=== PATIENT | female | born 1995 | race Caucasian/White ===

== ENCOUNTER 2016-08-25 | Outpatient (CLI) | payer OTHER | END 2016-08-25 23:34 | disposition critical access hospital (66) | DX: R41.82 Altered mental status, unspecified (principal) | CPT/HCPCS: A0425; A0427 ==

== ENCOUNTER 2016-08-26 00:06 | Emergency (ER) | payer OTHER ==
[2016-08-26] MEDS ORDERED: SODIUM CHLORIDE 0.9% 1,000 ML IV ONE (00:12)
== END 2016-08-26 01:12 | disposition home or self-care (01) ==
DX: F10.129 Alcohol abuse with intoxication, unspecified (principal)

== ENCOUNTER 2023-12-12 13:01 | Emergency (ER) | payer OTHER ==
--- NOTE | 2023-12-12 13:43 | ED Physician Documentation ---
PD HPI UPPER EXT INJURY - Stated complaint Stated Complaint: L FINGER LAC - Chief complaint Chief Complaint: Laceration - History obtained from History obtained from: Patient - Additonal information Additional information: Patient is a 28-year-old female presenting for evaluation of left middle digit i njury. Patient works at the [employer] and a coworker accidentally closed a security door when the patient's hand was in the doorway. She has a small laceration to the finger. She does not take a blood thinner. She is unsure of her last tetanus. Review of Systems Skin: reports: Laceration (s) Musculoskeletal: reports: Extremity pain PD PAST MEDICAL HISTORY - Past Medical History Past Medical History: Yes - Past Surgical History Past Surgical History: Yes General: Appendectomy HEENT: Tonsil/Adenoidectomy - Present Medications Home Medications: Ambulatory Orders Medication Instructions Recorded Confirmed desog-e.estradioL/e.estradioL 1 each PO DAILY 12/12/23 12/12/23 [Volnea 0.15-0.02-0.01 mg Tab] - Allergies Allergies/Adverse Reactions: Allergies Allergy/AdvReac Type Severity Reaction Status Date / Time amoxicillin [Amoxicillin] Allergy unknown Verified 12/12/23 13:33 hydrocodone AdvReac Nausea Verified 12/12/23 13:27 - Social History Does the pt smoke?: No Smoking Status: Never smoker Does the pt drink ETOH?: Yes Does the pt have substance abuse?: No - Immunizations Immunizations are current?: Yes - POLST Patient has POLST: No PD ED PE NORMAL - General General: Alert and oriented X 3, No acute distress, Well developed/nourished - HEENT HEENT: Atraumatic - Respiratory Respiratory: No respiratory distress - Extremities Extremities: Other (Tenderness to left middle digit with normal range of motion at all joints, 0.5 cm laceration to fingertip pad; No nailbed involvement) PD ED PE EXPANDED - Extremities HERB UE/Hands Visual: 1 - laceration, swelling Results - Vitals Vitals: Vital Signs - 24 hr 12/12/23 12/12/23 13:23 14:49 Temperature 36.7 C Heart Rate 87 86 Respiratory 20 18 Rate Blood Pressure 153/106 H 184/118 H O2 Saturation 100 96 Oxygen O2 Source Room air PD Medical Decision Making - ED course Complexity details: reviewed results, d/w patient ED course: Patient is a 28-year-old female with injury to her left middle digit after accidentally having it slammed in a door. Has a small laceration to the fingertip pad. Not on a blood thinner. Able to range of motion at all joints. Her tetanus was updated. An x-ray was obtained which I reviewed I do not see a fracture. Recommended suture repair for her laceration given location but patient reports significant fear of needles. Discussed options for treatment and she does not want suture repair. Wound is not very deep And was thoroughly irrigated with saline and antiseptic solution.Patient understands that given the location that it will take longer to heal without sutures.Will place a finger splint and have patient continue to keep the wound clean and dry. 1 Steri-Strip was applied to the wound. Patient aware of concerning symptoms to return for including signs of infection. 1433 - Pt declines suture repair. She reports fear of needles and we discussed options for repair including digital block for anesthetic vs quick repair without anesthetic as repair would likely only need 1 stitch. Departure - Departure Disposition: 01 Home, Self Care Clinical Impression: Injury of left middle finger, Laceration of left middle finger Condition: Stable Instructions: ED Contusion Finger, ED Laceration Ext Sutr Stap Tape Comments: Your x-ray does not show a fracture or dislocation.You do have a small laceration to the fingertip pad. At this time you have declined to suture repair and I would recommend you continue to wear the finger splint as well as keep the wound clean and dry. Return to the ER with any concerning symptoms such as signs of infection, worsening pain or any other concerns. You should have close follow-up with PCP or occupational health provider in the next week as this was work-related. Continue with ice, anti-inflammatory such as acetaminophen or ibuprofen, elevation. XRAY IMPRESSION: Soft tissue injury, without an associated bony fracture seen. Forms: PCP List Discharge Date/Time: 12/12/23 14:49
[2023-12-12] MEDS: TETANUS/DIPHTHERIA/PERTUSSIS 0.5 ML SYRINGE IM ONE (13:50)
[2023-12-12] MEDS: ACETAMINOPHEN 325 MG TABLET PO STA (14:03)
[2023-12-12] MEDS: BUFFERED LIDOCAINE 10 ML SYRINGE SUBQ STA (14:17)
--- NOTE | 2023-12-12 14:32 | XRAY Report ---
PROCEDURE: Finger(s) LT INDICATIONS: smashed in door/small lac TECHNIQUE: AP hand, 2 views of the third finger(s) acquired. COMPARISON: None. FINDINGS: Bones: No fractures or dislocations. No suspicious bony lesions. Soft tissues: Soft tissue injury with soft tissue gas can be seen involving the nail bed. No radiopa que foreign bodies are seen. IMPRESSION: Soft tissue injury, without an associated bony fracture seen. Reviewed by: Santo Rossi MD on 12/12/2023 1:31 PM SHARIF Approved by: Santo Rossi MD on 12/12/2023 1:31 PM SHARIF Station ID: [id number]
[2023-12-12 14:56] VITALS: BP 184/118; O2SAT 96
== END 2023-12-12 14:49 | disposition home or self-care (01) ==
LOC: ED 13:01
DX: S61.213A Laceration without foreign body of left middle finger without damage to nail, initial encounter (principal); W23.2XXA Caught, crushed, jammed or pinched between a moving and stationary object, initial encounter; Y93.89 Activity, other specified; Y92.148 Other place in prison as the place of occurrence of the external cause; Y99.0 Civilian activity done for income or pay; F40.232 Fear of other medical care
CPT/HCPCS: 73140; 90471; 90715; 99283; A9270; 1040M